=== PATIENT | female | born 1955 | race Caucasian/White ===

== ENCOUNTER 2021-06-14 01:12 | Inpatient (IN) | payer MEDICARE, OTHER ==
[~2021-06-14] VITALS: Ht 157.5 cm; Wt 138.6 kg
[2021-06-14] MEDS ORDERED: ALBUTEROL2.5 MG/3 M INH (04:18)
[2021-06-14] MEDS ORDERED: CARVEDILOL6.25 MG PO (04:19)
[2021-06-14] MEDS ORDERED: ABILIFY 5 MG TAB5 MG PO (04:19)
[2021-06-14] MEDS ORDERED: ASPIRIN CHEWABL81 MG PO (04:19)
[2021-06-14] MEDS ORDERED: STOOL SOFTENER100 MG PO (04:20)
[2021-06-14] MEDS ORDERED: TRICOR 48 MG TA48 MG GT (04:20)
[2021-06-14] MEDS ORDERED: MONTELUKAST SOD10 MG PO (04:21)
[2021-06-14] MEDS ORDERED: FISH OIL CONC1000 MG PO (04:23)
[2021-06-14] MEDS ORDERED: NIACIN500 M1 PO (04:23)
[2021-06-14] MEDS ORDERED: OMEPRAZOLE20 MG PO (04:24)
[2021-06-14] MEDS ORDERED: RETACRIT40000 UNIT SC (04:25)
[2021-06-14] MEDS ORDERED: ZOCOR40 MG PO (04:25)
[2021-06-14] MEDS ORDERED: SERTRALINE HCL100 MG PO (04:25)
[2021-06-14] MEDS ORDERED: INSULIN GL100 UNIT/1 SQ (04:27)
[2021-06-14] MEDS ORDERED: TRAZODONE HCL150 MG PO (04:28)
[2021-06-14] MEDS ORDERED: VITAMIN C500 MG PO (04:28)
[2021-06-14] MEDS ORDERED: VALACYCLOVIR1000 MG PO (04:28)
[2021-06-14] MEDS ORDERED: VITAMIN D3125 MC1 PO ×2 (04:30→04:34)
[2021-06-14] MEDS ORDERED: VITAMIN B-121000 MC3 GT (04:31)
[2021-06-14] MEDS ORDERED: FERROUS SULFAT324 MG PO (04:31)
[2021-06-14] MEDS ORDERED: BUMETANIDE2 MG PO (04:31)
[2021-06-14] MEDS ORDERED: CYCLOBENZAPRINE5 MG PO (04:32)
[2021-06-14] MEDS ORDERED: HUMALOG100 UNIT/1 SQ (04:32)
[2021-06-14] MEDS ORDERED: LISINOPRIL10 MG PO (04:33)
[2021-06-14] MEDS ORDERED: FERREX 150150 MG PO (04:33)
[2021-06-14] MEDS ORDERED: MULTI-VITAMIN1 EACH PO (04:35)
[2021-06-14 07:51] LABS: HEMOGLOBIN 9.5 gm/dl (12.3-15.3); RED BLOOD COUNT 2.34 M/UL (4.00-5.10)
[2021-06-14 08:19] LABS: WHITE BLOOD COUNT 23.4 K/UL (4.5-11.0)
[2021-06-15 03:08] LABS: HEMOGLOBIN 9.4 gm/dl (12.3-15.3); RED BLOOD COUNT 2.27 M/UL (4.00-5.10); WHITE BLOOD COUNT 18.2 K/UL (4.5-11.0)
[2021-06-16 03:37] LABS: HEMOGLOBIN 9.4 gm/dl (12.3-15.3); RED BLOOD COUNT 2.32 M/UL (4.00-5.10)
[2021-06-16 03:39] LABS: WHITE BLOOD COUNT 12.6 K/UL (4.5-11.0)
--- NOTE | 2021-06-16 15:08 | NUR ---
Patient recieved early afternoon, vitals were stable and the patient had no complaints. She is currently resting in bed comfortably.
== END 2021-06-17 01:35 | disposition short-term general hospital (02) | DRG 871 ==
LOC: PROG CARE 01:12 → MED SURG 4 06-16 11:21
PROVIDERS: Internal Medicine; ADMIT Internal Medicine
PROC: B24BZZZ Ultrasonography of Heart with Aorta (ICD-10-PCS; principal; 2021-06-14)
PROC: 5A09357 Assistance with Respiratory Ventilation, Less than 24 Consecutive Hours, Continuous Positive Airway Pressure (ICD-10-PCS; 2021-06-14)
PROC: 5A1D70Z Performance of Urinary Filtration, Intermittent, Less than 6 Hours Per Day (ICD-10-PCS; 2021-06-15)
DX: A41.1 Sepsis due to other specified staphylococcus (principal); N18.6 End stage renal disease; I12.0 Hypertensive chronic kidney disease with stage 5 chronic kidney disease or end stage renal disease; J96.11 Chronic respiratory failure with hypoxia; Z20.822 Contact with and (suspected) exposure to COVID-19; L03.115 Cellulitis of right lower limb; Z68.43 Body mass index [BMI] 50.0-59.9, adult; E11.22 Type 2 diabetes mellitus with diabetic chronic kidney disease; E66.01 Morbid (severe) obesity due to excess calories; E11.40 Type 2 diabetes mellitus with diabetic neuropathy, unspecified; I95.9 Hypotension, unspecified; G47.33 Obstructive sleep apnea (adult) (pediatric); Z96.653 Presence of artificial knee joint, bilateral; E11.621 Type 2 diabetes mellitus with foot ulcer; D50.9 Iron deficiency anemia, unspecified; D63.1 Anemia in chronic kidney disease; G89.29 Other chronic pain; J44.9 Chronic obstructive pulmonary disease, unspecified; Z99.81 Dependence on supplemental oxygen; Z99.2 Dependence on renal dialysis; Z90.49 Acquired absence of other specified parts of digestive tract; Z88.0 Allergy status to penicillin; Z87.891 Personal history of nicotine dependence; Z98.891 History of uterine scar from previous surgery
CPT/HCPCS: ECHO; 36415; 71045; 73700; 78315; 80048; 80053; 80202; 82550; 82553; 82962; 83605; 84484; 85025; 85652; 86140; 87040; 87070; 87077; 87186; 87205; 90935; 93005; 93306; 93926; 94640; 94660; 94664; 94760; A9503; J0696; J1644; J2185; J3370; J7050